=== PATIENT | male | born 1950 | race Caucasian/White ===

== ENCOUNTER 2017-09-10 12:12 | Emergency (ER) | payer MEDICARE, OTHER ==
--- NOTE | 2017-09-10 12:54 | EDM.PDOC ---
ED HPI GENERAL MEDICAL PROBLEM - General Chief Complaint: Gastrointestinal Problem Stated Complaint: VOMITING/SYNCOPE/HEAD INJURY Time Seen by Provider: 09/10/17 12:51 Source of Information: Reports: Patient, Family (spouse) History Limitations: Reports: No Limitations - History of Present Illness INITIAL COMMENTS - FREE TEXT/NARRATIVE: 66-year-old male presents to the ED after suffering a syncopal episode at home this morning. Patient states he awoke with nausea vomiting and prolific watery diarrhea about 0600 hrs. this morning. He has been caring for his 3 grandchildren who have all been ill with a similar type illness. 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 Blood sugars 200. He has not taken any insulin yet today. Patient states he was standing at the bathroom sink when he got dim vision and suffered a syncopal episode where he actually fell to the floor. He hit the bridge of his nose and his forehead on the edge of the sink or vanity and then he believes the doorknob of one of the cupboard doors hit him in the upper forehead along the hairline causing abrasion. He also suffered abrasions to his right flank area,ust below his right scapula. His believes this is from striking the toilet bowl. Patient had just gotten up from the toilet after having a large volume diarrhea fluid loss. He fell directly onto a tile floor. Onset: Today Onset Date: 09/10/17 Onset Time: 11:55 Duration: Minutes: Location: Reports: Head, Face, Chest Quality: Reports: Ache Severity: Moderate Improves with: Reports: None Worsens with: Reports: None Context: Reports: Trauma (Syncopal event at home). Denies: Activity, Exercise, Lifting, Sick Contact, Other Associated Symptoms: Reports: Loss of Appetite, Malaise, Nausea/Vomiting ( Intractable since 0600 this morning), Weakness. Denies: Confusion, Chest Pain, Cough, cough w sputum, Diaphoresis, Fever/Chills, Headaches Treatments MANAGED CARE PROVIDER: Reports: Other (see below) (None.) Generalized Pain Score (Numeric/FACES): 4 - Related Data Allergies Allergy/AdvReac Type Severity Reaction Status Date / Time No Known Allergies Allergy Verified 09/10/17 12:26 Home Meds: Home Meds Ezetimibe [Zetia] 10 mg PO DAILY 09/10/17 [History] Insulin Aspart [Novolog] 30 unit SQ TID 09/10/17 [History] Insulin Glargine,Hum.Rec.Anlog [Toumaxine Solostar] 72 unit SQ DAILY 09/10/17 [ History] Ondansetron [Zofran ODT] 4 mg PO Q6H #5 tab.dis 09/10/17 [Rx] amLODIPine [Norvasc] 10 mg PO DAILY 09/10/17 [History] Past Medical History HEENT History: Reports: Impaired Vision Cardiovascular History: Reports: High Cholesterol, Hypertension Endocrine/Metabolic History: Reports: Diabetes, Type II - Infectious Disease History Infectious Disease History: Reports: Chicken Pox, Measles, Mumps - Past Surgical History GI Surgical History: Reports: Cholecystectomy Social & Family History - Tobacco Use Smoking Status *Q: Never Smoker - Caffeine Use Caffeine Use: Reports: Coffee - Recreational Drug Use Recreational Drug Use: No - Living Situation & Occupation Living situation: Reports: Occupation: Employed ED ROS GENERAL - Review of Systems Review Of Systems: See Below Constitutional: Reports: Chills, Malaise, Weakness, Fatigue, Decreased Appetite , Weight Loss. Denies: Fever HEENT: Reports: No Symptoms Respiratory: Reports: No Symptoms Cardiovascular: Reports: Syncope Endocrine: Reports: Fatigue (See history of present illness), Other (Glucose on last check was 200.) GI/Abdominal: Reports: Diarrhea, Nausea, Vomiting : Reports: Frequency Musculoskeletal: Denies: Neck Pain, Shoulder Pain, Arm Pain, Back Pain, Hand Pain, Leg Pain, Foot Pain, Joint Pain, Joint Swelling Skin: Reports: No Symptoms Neurological: Reports: Syncope, Difficulty Walking, Weakness (Due to weakness and dizziness). Denies: Confusion, Dizziness, Headache, Numbness, Paresthesia, Pre-Existing Deficit, Seizure, Tingling, Tremors, Trouble Speaking, Change in Speech, Gait Disturbance Psychiatric: Reports: No Symptoms Hematologic/Lymphatic: Reports: No Symptoms Immunologic: Reports: No Symptoms ED EXAM, GI/ABD - Physical Exam Exam: See Below Exam Limited By: No Limitations General Appearance: Alert, Mild Distress (Appears ill in appearance. Has an obvious abrasion laceration to the bridge of his nose and large abrasion to the upper forehead up into the hairline in the midline of the forehead.) Eyes: Bilateral: Normal Appearance (No jaundice.) Nose: Other (Patient is suffered an injury to the bridge of his nose initially I thought there was a 1 cm laceration but once the wound was cleansed it appropriately appears to be a avulsion of skin apraxia centimeter bites as 1 cm along the upper aspect of his nose to the bridge of the nose. There is really nothing to suture.) Throat/Mouth: Other (Tongue is dry and coated with no lacerations or intra oral bleeding.) Neck: Normal Inspection, Supple, Non-Tender, Full Range of Motion. No: Carotid Bruit, Lymphadenopathy (L), Lymphadenopathy (R) Respiratory/Chest: No Respiratory Distress, Lungs Clear, Normal Breath Sounds, No Accessory Muscle Use, Chest Non-Tender, Other (Has a white count of abrasion to the posterior lateral right chest wall into her to his scapula with no sign of hematoma. No palpable rib deformities or pain with deep inspiration) Cardiovascular: Normal Peripheral Pulses, Regular Rate, Rhythm, No Edema, No Gallop, No Murmur, No Rub GI/Abdominal Exam: Soft (Hyperactive bowel sounds.), Non-Tender, No Organomegaly , No Abnormal Bruit, No Mass, Abnormal Bowel Sounds Back Exam: Normal Inspection, Full Range of Motion. No: CVA Tenderness (L), CVA Tenderness (R) Extremities: Normal Inspection, Normal Range of Motion, Non-Tender, No Pedal Edema Neurological: Alert, Oriented, CN II-XII Intact, Normal Cognition Psychiatric: Normal Affect, Normal Mood Skin Exam: Warm, Dry, Intact, Normal Color, Other EKG INTERPRETATION EKG Date: 09/10/17 Time: 13:00 Rhythm: NSR Rate (Beats/Min): 88 [place]: LAD-Left [place] Deviation (Left axis deviation of -56 I elect anterior fascicular block pattern) P-Wave: Present (First-degree AV block present) QRS: Other (Decreased voltage in the limb leads.) ST-T: Other (Near Q-wave in leads 3 and aVF consider old inferior wall myocardial infarction.) QT: Normal EKG Interpretation Comments: Abnormal ECG Course - Vital Signs Last Recorded V/S: Last Vital Signs Temp 36.4 C 09/10/17 12:21 Pulse 87 09/10/17 12:21 Resp 16 09/10/17 12:21 BP 130/78 09/10/17 12:21 Pulse Ox 95 09/10/17 12:21 Orthostatic Blood Pressure [ 97/70 Standing] Orthostatic Blood Pressure [ 131/83 Sitting] Orthostatic Blood Pressure [ 130/78 Supine] - Orders/Labs/Meds Orders: Active Orders 24 hr Category Date Time Status EKG Documentation Completion [RC] STAT Care 09/10/17 12:53 Active Lactated Ringers [Ringers, Lactated] 1,000 ml Med 09/10/17 13:00 Active IV .BOLUS Sodium Chloride 0.9% [Normal Saline] 1,000 ml Med 09/10/17 14:30 Active IV ASDIRECTED Medication Orders Lactated Ringer's (Ringers, Lactated) 1,000 mls @ 999 mls/hr IV .BOLUS JEFF Last Admin: 09/10/17 13:03 Dose: 999 mls/hr Sodium Chloride (Normal Saline) 1,000 mls @ 999 mls/hr IV ASDIRECTED JEFF Last Admin: 09/10/17 14:37 Dose: 999 mls/hr Labs: Laboratory Tests 09/10/17 09/10/17 09/10/17 Range/Units 12:33 12:33 15:46 WBC 15.39 H (4.23-9.07) K/mm3 RBC 5.63 (4.63-6.08) M/mm3 Hgb 17.0 (13.7-17.5) gm/L Hct 47.6 (40.1-51.0) % MCV 84.5 (79.0-92.2) fl MCH 30.2 (25.7-32.2) pg MCHC 35.7 H (32.2-35.5) g/dl RDW Std Deviation 52.7 H (35.1-43.9) fL Plt Count 248 (163-337) K/mm3 MPV 9.7 (9.4-12.3) fl Neutrophils % (Manual) 88 H (40-60) % Band Neutrophils % 0 (0-10) % Lymphocytes % (Manual) 9 L (20-40) % Atypical Lymphs % 0 % Monocytes % (Manual) 2 (2-10) % Eosinophils % (Manual) 1 (0.8-7.0) % Basophils % (Manual) 0 L (0.2-1.2) Platelet Estimate Adequate RBC Morph Comment Normal Sodium 137 (136-145) mEq/L Potassium 4.8 (3.5-5.1) mEq/L Chloride 103 (98-107) mEq/L Carbon Dioxide 22 (21-32) mEq/L Anion Gap 16.8 H (5-15) BUN 25 H (7-18) mg/dL Creatinine 1.6 H (0.7-1.3) mg/dL Est Cr Clr Drug Dosing 48.37 mL/min Estimated GFR (MDRD) 43 (>60) mL/min BUN/Creatinine Ratio 15.6 (14-18) Glucose 328 H (80-115) mg/dL POC Glucose 313 H (80-115) mg/dL Calcium 9.3 (8.5-10.1) mg/dL Magnesium 1.6 L (1.8-2.4) mg/dl Total Bilirubin 0.8 (0.2-1.0) mg/dL AST 53 H (15-37) U/L ALT 118 H (16-63) U/L Alkaline Phosphatase 63 (46-116) U/L CK-MB (CK-2) 3.4 (0-3.6) ng/ml Troponin I < 0.017 (0.00-0.056) ng/mL C-Reactive Protein < 0.2 (<1.0) mg/dL NT-Pro-B Natriuret Pep 15 (0-125) pg/mL Total Protein 7.7 (6.4-8.2) g/dl Albumin 3.9 (3.4-5.0) g/dl Globulin 3.8 gm/dL Albumin/Globulin Ratio 1.0 (1-2) Meds: Medications Generic Name Dose Route Start Last Admin Trade Name Freq PRN Reason Stop Dose Admin Lactated Ringer's 1,000 mls @ 999 mls/hr 09/10/17 13:00 09/10/17 13:03 Ringers, Lactated IV 999 mls/hr .BOLUS JEFF Administration Sodium Chloride 1,000 mls @ 999 mls/hr 09/10/17 14:30 09/10/17 14:37 Normal Saline IV 999 mls/hr ASDIRECTED JEFF Administration Discontinued Medications Generic Name Dose Route Start Last Admin Trade Name Freq PRN Reason Stop Dose Admin Acetaminophen 975 mg 09/10/17 15:45 09/10/17 15:51 Tylenol PO 09/10/17 15:46 975 mg NOW ONE Administration Insulin Human Regular 20 unit 09/10/17 14:19 09/10/17 14:36 Humulin R SUBCUT 09/10/17 14:20 20 units ONETIME ONE Administration Protocol Lidocaine HCl 10 ml 09/10/17 12:53 09/10/17 14:52 Xylocaine 1% INJECT 09/10/17 12:54 Not Given ONETIME ONE Metoclopramide HCl 10 mg 09/10/17 13:47 09/10/17 13:52 Reglan IVPUSH 09/10/17 13:48 10 mg ONETIME ONE Administration - Radiology Interpretation Free Text/Narrative:: 66-year-old male attends the ED after a syncopal event occurred in the bathroom at home this morning. Patient states he awoke around 0600 hrs. this morning with acute onset of nausea vomiting and diarrhea. States he's vomited at least 8 -10 times with no blood. He has had 5 or 6 large volume watery stool losses with no blood as well. He just gotten up from the toilet was standing at the sink over the vanity when his vision went dim and he collapsed to the floor. Unfortunately struck the edge of the vanity her sink with the bridge of his nose and scraped his forehead he believes on one of the doorknobs on the vanity. Instruct the right posterior aspect of his thorax under his scapula on the toilet bowl. He was apparently unresponsive for 10-15 seconds. At present he has a mild headache. Nausea has improved. Initial assessment appears that he is going to need laceration repair to the bridge of his nose. No other bony injuries are identified. Lab work will be done and since she is defined as orthostatic he will receive IV Ringer's lactate at open. He reports his blood sugar at home was 200. Will await and see what the lab provides. CT head will be done. - Re-Assessments/Exams Free Text/Narrative Re-Assessment/Exam: 09/10/17 13:56 once the wound on his bridge of his nose was cleansed it reveals that there is no laceration but an avulsion of skin nearly 1 cm x 1 cm therefore there is nothing to really improve by sutures. The wound is fairly superficial. Will give Reglan 10 mg IV to arrest vomiting. 09/10/17 14:13 CT of his head is within normal limits. There is no intracranial bleeding or mass effect. There is mild generalized atrophy. 09/10/17 14:18 White count is elevated at 15.39. Differential is 88% neutrophils and no bands hemoglobin is 17.0 with hematocrit of 47.6 suggesting some degree of hemoconcentration platelets 248,000. Sodium is 137. Potassium 4.8. Chloride 103. Bicarbonate is okay at 22. Anion gap is mildly elevated at 16.8. BUNs 25 creatinine is 1.6. EGFR is 43. Current glucose is 328. He is going to require some insulin. Calcium is 9.3. Magnesium is slightly low at 1.6. Bilirubin is 0.8. AST is 53. ALT is 118. Alkaline phosphatase normal at 63. Cardiac markers are normal. Patient will be given 20 units of regular insulin subcutaneously at this time to make sure that he does not develop severe hyperglycemia His first liter of IV fluid has been infused. He will have repeat orthostatic BPs to see if he needs further fluids. 09/10/17 14:32 patient remains mildly orthostatic with a drop in BP was standing to 94/62. Will therefore receive a another liter of IV fluids this time normal saline at open. 09/10/17 15:46 Blood sugar is now 313. It is starting to reverse. He will check blood sugars every 2 hours and give doses of insulin as needed per sliding scale. Patient has completed his second liter of IV fluids and is feeling better. He is kept on about 4 ounces of Gatorade without any aggravation of nausea. We'll check on his blood sugar now since is been an hour since he received the insulin. He is well versed in how to look after his blood sugars as he's had diabetes for 20 years. We discharged home on clear fluids primarily that of Gatorade Powerade and advance diet as tolerated without any dairy products or apple juice or grape juice until stools are formed backup. Will write a prescription for Zofran 4 mg sublingually every 6 hours when necessary for nausea or vomiting relief. Departure - Departure Time of Disposition: 15:47 Disposition: Home, Self-Care 01 Condition: Fair Clinical Impression: Gastroenteritis, Syncope and collapse, Volume depletion, gastrointestinal loss , Avulsion of skin - Discharge Information Prescriptions: Ondansetron [Zofran ODT] 4 mg PO Q6H #5 tab.dis Instructions: Viral Gastroenteritis, Adult, Srum-[id number], Syncope, [id number] Referrals: PCP,Not In Area [Primary Care Provider] - Forms: ED Department Discharge Additional Instructions: Evaluation the emergent today in regards to syncope and collapse that occurred due to volume depletion secondary to aggressive fluid losses from nausea vomiting and diarrhea. You were found to be moderately volume depleted in the emergency department and treated with 2 L of intravenous fluids to replace fluid losses. Also Reglan was given 10 mg intravenously for nausea relief. Unfortunately you suffered an avulsion injury to the skin on the bridge of her nose and abrasion to her forehead during your fall and collapse. Also contusion abrasion to her right flank area occurred from the fainting spell. Lab work did not reveal any signs of heart related illness. CT of her head was performed due to the nature of your trauma with blunt force trauma to the forehead and bridge of the nose during the syncopal event. ET did not reveal any intracranial bleeding or mass effect or skull fracture. Blood sugar was found to be 378 in the ED and you're therefore treated with 20 units of subcutaneous regular insulin. One hour later the blood sugars down to 313. You will need to check her blood sugars every 2 hours and treated appropriately with insulin as needed to keep them from going higher. Diet to be primarily Gatorade Powerade tonight. When hungry made try some soda crackers and advance to toast or bread or a light soup such as broth soup or turkey rice/turkey noodle. Advise no dairy products or abdomen juice or grape juice until stools are formed back up. May use Zofran under the tongue 4 mg every 4 hours as needed for relief of nausea or vomiting. I would suggest taking one at about 1700 hrs. today and then again at 2100 hrs. to make sure that you don't vomited anymore tonight. After this she can adopt a wait and see approach. If vomiting or figures diarrhea continues or blood sugars remained greater than 350 then you would need to return to the emergency department for further fluid replacements. - My Orders Last 24 Hours: My Active Orders 09/10/17 12:53 EKG Documentation Completion [RC] STAT 09/10/17 13:00 Lactated Ringers [Ringers, Lactated] 1,000 ml IV .BOLUS 09/10/17 14:30 Sodium Chloride 0.9% [Normal Saline] 1,000 ml IV ASDIRECTED - Assessment/Plan Last 24 Hours: My Active Orders 09/10/17 12:53 EKG Documentation Completion [RC] STAT 09/10/17 13:00 Lactated Ringers [Ringers, Lactated] 1,000 ml IV .BOLUS 09/10/17 14:30 Sodium Chloride 0.9% [Normal Saline] 1,000 ml IV ASDIRECTED
[2017-09-10] MEDS ORDERED: Lactated Ringers 1,000 ML IV SCH (13:00)
[2017-09-10] MEDS: Lidocaine 1% 10 ML MDV INJECT ONE ×2 (13:08→14:52)
[2017-09-10] MEDS ORDERED: Metoclopramide 10 MG/2 ML SDV IVPUSH ONE (13:47)
--- NOTE | 2017-09-10 14:18 | CT ---
Head CT Technique: Multiple axial sections through the brain were obtained. Intravenous contrast was not utilized. Comparison: No previous intracranial imaging. Findings: Ventricles along with basal cisterns and sulci over the convexities are mildly prominent. No abnormal parenchymal densities are seen. No evidence of intracranial hemorrhage. No midline shift or mass effect is seen. Bone window settings were reviewed which showed no acute calvarial abnormality. No acute sinus disease is seen. Impression: 1. Mild generalized atrophy. 2. No acute intracranial abnormality is seen. No acute calvarial abnormality is seen. Diagnostic code #2
[2017-09-10] MEDS ORDERED: Insulin Regular, Human 100 Units/ML 3 ML Vial SUBCUT ONE (14:19)
[2017-09-10] MEDS ORDERED: Sodium Chloride 0.9% 1,000 ML IV SCH (14:30)
[2017-09-10] MEDS ORDERED: Acetaminophen 325 MG Tab PO ONE (15:45)
== END 2017-09-10 16:15 | disposition home or self-care (01) ==
LOC: JD.ED 12:12
DX: R55 Syncope and collapse (principal); S01.20XA Unspecified open wound of nose, initial encounter; K52.9 Noninfective gastroenteritis and colitis, unspecified; E86.9 Volume depletion, unspecified; E78.00 Pure hypercholesterolemia, unspecified; I10 Essential (primary) hypertension; E11.9 Type 2 diabetes mellitus without complications; Z79.4 Long term (current) use of insulin; Z79.899 Other long term (current) drug therapy; W19.XXXA Unspecified fall, initial encounter
CPT/HCPCS: 36415; 70450; 80053; 82553; 82962; 83735; 83880; 84484; 85025; 86140; 93005; 96361; 96372; 96374; 99285; A9270; J1817; J2765; J7040; J7120; 93010